=== PATIENT | male | born 1945 | race Hispanic/Latino ===

== ENCOUNTER 2021-01-17 00:55 | Emergency (ER) | payer MEDICARE ==
[~2021-01-17] VITALS: Ht 167.6 cm; Wt 82.1 kg
[~2021-01-17 00:55] MED LIST: ATORVASTATIN CA40 MG PO; LOSARTAN POTASS50 MG PO; METOPROLOL TART25 MG PO; Z.0.ADULT LOW DOSE81 PO; Z.0.METOPROLOL SUCC5 PO; [UNRECOGNIZED DRUG - OTHER]
[2021-01-17] MEDS ORDERED: ORPHENADRINE CITRATE 30 MG/ML VIAL IM ONE (01:15)
== END 2021-01-17 03:25 | disposition home or self-care (01) ==
LOC: ER 01:09
DX: S16.1XXA Strain of muscle, fascia and tendon at neck level, initial encounter (principal); G44.209 Tension-type headache, unspecified, not intractable; W18.30XA Fall on same level, unspecified, initial encounter; I10 Essential (primary) hypertension; E78.5 Hyperlipidemia, unspecified; Z95.5 Presence of coronary angioplasty implant and graft
CPT/HCPCS: 70450; 72125; 99283